=== PATIENT | female | born 1965 | race Caucasian/White ===

== ENCOUNTER 2018-10-08 18:27 | Emergency (ER) | payer MEDICARE, MEDICAID ==
[~2018-10-08] VITALS: Ht 157.5 cm; Wt 90.7 kg
[~2018-10-08 18:27] MED LIST: ACETAMIN-CODE12.5 ML PO; ACETAMINOPHEN-1 EAC1 PO; ALPRAZOLAM PO; ANTIVERT25 MG PO; ASPIR 8181 MG PO; ASPIR-TRIN325 MG PO; ASPIRIN EC325 M1 PO; ATORVASTATIN CA40 MG PO; BENADRYL25 MG PO; CELECOXIB100 MG PO; CIPROFLOXACIN500 M3; FLAGYL500 MG; FLEXERIL PO; GABAPENTIN 100100 MG PO; LAMICTAL XR200 MG PO; MELATONIN3 MG PO; NAPROSYN500 MG PO; NEURONTIN 300300 M1 PO; ONDANSETRON HCL4 M2 PO; PROZAC10 MG PO; PROZAC20 MG PO; PROZAC40 MG PO; ROBAXIN 750 MG750 M1 PO; TOPROL XL50 MG PO; XANAX XR2 MG PO; XANAX1 MG PO; XARELTO10 MG PO
[2018-10-08] MEDS ORDERED: OSTERA TABLET1 EAC1 PO (18:38)
[2018-10-08 19:30] LABS: ABSOLUTE BASOPHILS 0.1 thou/uL (0.0-0.2); ABSOLUTE EOSINOPHILS 0.1 thou/uL (0.0-0.7); ABSOLUTE LYMPHOCYTES 1.9 thou/uL (0.8-5.3); ABSOLUTE MONOCYTES 0.6 thou/uL (0.0-1.2); ABSOLUTE NEUTROPHILS 6.2 thou/uL (1.6-8.1); BASOPHILS 0.7 %; EOSINOPHILS 1.4 %; HEMATOCRIT 41.6 % (37.0-47.0); HEMOGLOBIN 14.3 gm/dL (12.0-15.0); MCH 33.7 pg (26.0-34.0); MCHC 34.5 g/dL (28.0-37.0); MCV 97.8 fL (80.0-100.0); MONOCYTES 7.1 %; MPV 6.6 fl. (7.2-11.1); NUCLEATED RBCS 0 /100WBC; PLATELET COUNT* 265 thou/uL (150-400); POLYS 69.8 %; RBC 4.26 mil/uL (4.20-5.00); RDW-CV 13.3 % (10.5-14.5); WBC 8.9 thou/uL (4.0-11.0)
[2018-10-08 19:39] LABS: ANION GAP 9 mmol/L (7-16); BUN 19 mg/dL (7-18); CALCIUM 10.2 mg/dL (8.5-10.1); CHLORIDE 100 mmol/L (98-107); CO2 29 mmol/L (21-32); CREATININE 0.8 mg/dL (0.6-1.3); GLUCOSE 116 mg/dL (70-99); SODIUM 138 mmol/L (136-145)
[2018-10-08 19:40] LABS: APTT 25.9 Seconds (25.0-31.3)
[2018-10-08 19:49] LABS: ALBUMIN 4.1 g/dL (3.4-5.0); ALKALINE PHOSPHATASE 106 U/L (46-116); NT-PRO BRAIN NAT PEPTIDE 26 pg/mL (<300); SGOT 13 U/L (15-37); SGPT 22 U/L (30-65); TOTAL BILIRUBIN 0.2 mg/dL (<0.1-1.0); TOTAL PROTEIN 7.9 g/dL (6.4-8.2); TROPONIN-I LEVEL <0.06 ng/mL (<0.06)
[2018-10-08 19:54] LABS: URINE BILIRUBIN NEGATIVE (Negative); URINE BLOOD 1+ (Negative); URINE CLARITY CLEAR; URINE COLOR YELLOW; URINE GLUCOSE-RANDOM NEGATIVE (Negative); URINE KETONES NEGATIVE (Negative); URINE LEUKOCYTES-REFLEX NEGATIVE (Negative); URINE NITRITE-REFLEX NEGATIVE (Negative); URINE PROTEIN NEGATIVE (Negative); URINE UROBILINOGEN 0.2 E.U./dl (0.2-1.0)
[2018-10-08 20:02] LABS: AMP/METHAMP Negative (Negative); BARBITURATES Negative (Negative); BENZODIAZEPINES POSITIVE (Negative); COCAINE Negative (Negative); METHADONE Negative (Negative); OPIATES Negative (Negative); PCP Negative (Negative); THC POSITIVE (Negative)
[2018-10-08 20:08] LABS: SQUAMOUS >10 Many /LPF (0-3); URINE WBC-REFLEX None Seen /HPF (0-5)
[2018-10-08 20:09] LABS: BACTERIA-REFLEX None Seen /HPF (None Seen); CASTS None Seen /LPF (None Seen); CRYSTALS None Seen /LPF (None Seen); URINE RBC 3-10 Few /HPF (0-2)
[2018-10-08 20:44] VITALS: BP 126/78
--- NOTE | 2018-10-09 12:16 | EKG ---
[place] [address] ELECTROCARDIOGRAM REPORT Name: BRIGETTE CUEVAS Room: [facility]#: [id number] Admission: 10/08/18 Attend Phys: Discharge: 10/08/18 Date of : 63 Report #: [id number] THIS REPORT FOR: //name// [facility] ED Test Date: 2018-10-08 Test Time: 18:49:46 Pat Name: BRIGETTE DRISCOLL Department: Room: Gender: F Pressure Controller: MS : 1965 Requested By: Angela Shepherd Order Number: [id number] MD: Rufus Oliver Measurements Intervals [place] Rate: 76 P: 11 GA: 156 QRS: 16 QRSD: 87 T: 39 QT: 379 QTc: 427 Interpretive Statements Sinus rhythm Abnormal R-wave progression, early transition Baseline wander in lead(s) V3,V4,V6 Compared to ECG 08/27/2016 09:44:04 No significant changes Electronically Signed On 10-09-2018 12:16:45 DIRECTOR GRAPHICS by Rufus Oliver [email or web address] <ELECTRONICALLY SIGNED> By: Rufus Oliver MD, FACC 10/09/18 1216 1849 Rufus Oliver MD, [facility] /EPI
== END 2018-10-08 20:44 | disposition home or self-care (01) ==
LOC: M.ERS 18:27
PROVIDERS: Nurse Practitioner Family
DX: R20.2 Paresthesia of skin (principal); R42 Dizziness and giddiness; I10 Essential (primary) hypertension; E78.5 Hyperlipidemia, unspecified; F17.210 Nicotine dependence, cigarettes, uncomplicated; Z88.6 Allergy status to analgesic agent; Z88.5 Allergy status to narcotic agent; Z88.8 Allergy status to other drugs, medicaments and biological substances; Z90.710 Acquired absence of both cervix and uterus; Z96.652 Presence of left artificial knee joint; Z79.899 Other long term (current) drug therapy

== ENCOUNTER → 2020-04-01 | Outpatient (CLI) | payer MEDICARE, MEDICAID ==
[~2020-04-01] MED LIST changes: +OSTERA TABLET1 EAC1 PO
== END ==
LOC: M.RAD 03-19 10:39 → M.ULTRA 09:04
DX: Z12.31 Encounter for screening mammogram for malignant neoplasm of breast (principal); R10.11 Right upper quadrant pain; R14.0 Abdominal distension (gaseous); N28.89 Other specified disorders of kidney and ureter

== ENCOUNTER → 2020-04-30 | Outpatient (CLI) | payer MEDICARE, MEDICAID ==
[~2020-04-30] MED LIST changes: +NEURONTIN 300M300 M2 PO
== END ==
LOC: M.ULTRA 04-24 15:00 → M.MRI 04-24 15:00 → M.ULTRA 13:00
PROVIDERS: ATTEND Family Medicine
DX: M47.816 Spondylosis without myelopathy or radiculopathy, lumbar region (principal); N26.1 Atrophy of kidney (terminal); M48.061 Spinal stenosis, lumbar region without neurogenic claudication

== ENCOUNTER → 2020-05-07 | Outpatient (CLI) | payer MEDICARE, MEDICAID ==
--- NOTE | 2020-05-23 15:59 | PAINCON ---
[facility] [address] [place] [address] PAIN MANAGEMENT CONSULTATION Name: BRIGETTE CUEVAS Room: [facility] Tali#: [id number] Admission: 05/07/20 Attend Phys: Ahmet Minor MD Discharge: Date of : 63 Report #: [id number] THIS REPORT FOR: //name// cc: Caterina Beckman Maggie M. DO ~ THIS REPORT FOR: //name// CC: Caterina Minor DATE OF SERVICE: 05/07/2020 CHIEF COMPLAINT: Low back pain. HISTORY: The patient is a 54-year-old female who has been referred to the pain clinic for evaluation of low back pain. She has a history of spinal stenosis. She has undergone epidural steroid injections in the past. She gleaned benefits from these. She returns today indicating that her pain has reoccurred. She has noticed tingling down into her legs. There is pain in the low back area. She rates it as a 3-4 today. It is exacerbated with standing, walking, climbing stairs, bending. She has been using muscle relaxants and nonsteroidal anti-inflammatory medications. These medications simply dull the pain. She has undergone physical therapy in the past with no long-term benefit. She has not been using chiropractic therapy. She denies any new bowel or bladder dysfunction. She feels that gabapentin helps down. ALLERGIES: CODEINE CAUSES NAUSEA AND VOMITING. HYDROCODONE, VICODIN, OXYCODONE, PERCOCET, DARVOCET-N 100, SOMA, TRAMADOL, WELLBUTRIN, EPINEPHRINE. CURRENT MEDICATIONS: Alprazolam 1 mg p.r.n., aspirin 81 or 325 mg, Lipitor 40 mg, Flexeril 10 mg t.i.d., gabapentin 300 mg t.i.d., Lamictal XR 200 mg, metoprolol XL 50 mg. PAST MEDICAL HISTORY: Hypertension, hyperlipidemia, bulging disks in the lumbar. Stomach problems and functional problems. PAST SURGICAL HISTORY: with hysterectomy in February 1998, left knee replacement on 09/11/2016. SOCIAL HISTORY: She is disabled. REVIEW OF SYSTEMS: Generally good health, wears glasses, nervousness, depression, back pain, joint stiffness, joint pain. LABORATORY DATA: 1. MRI of the lumbar spine dated 04/30/2020, L2-L3 [place] [address] PAIN MANAGEMENT CONSULTATION Name: BRIGETTE CUEVAS Room: [facility]#: [id number] Admission: 05/07/20 Attend Phys: Ahmet Minor MD Discharge: Date of : 63 Report #: [id number] bulge, bilateral facet hypertrophy and ligamentum flavum hypertrophy. This results in severe central canal stenosis and AP diameter of the central canal of 7.5 mm and mild bilateral neural foraminal narrowing. 2. L3-L4, broad-based posterior disk bulge, bilateral facet hypertrophy and ligamentum flavum hypertrophy results in mild central canal stenosis and bilateral neural foraminal narrowing at L4-L5. 3. L4-L5 broad-based posterior disk bulge and bilateral facet hypertrophy results in mild central canal stenosis and mild right and moderate left neural foraminal narrowing. 4. L5-S1 bilateral facet hypertrophy, no significant central canal stenosis or neural foraminal narrowing. PAIN CLINIC ASSESSMENT/PQRS: 1. The patient has osteoarthritic changes and has had a knee replacement. 2. Height 5 feet 2 inches, weight 220 pounds. 3. Vital signs: Blood pressure 130/56, heart rate 68, respiratory rate 16, room air saturation 98%, temperature 98.2. 4. Pain intensity 3-/10. 5. Fall history: The patient has not fallen in the last 3 months. 6. Blood thinner. The patient is not on a blood thinning medication. 7. Hypertension. The patient is treated for hypertension. 8. Opioids greater than 6 weeks. The patient receives medication from her primary. 9. Risk assessment tool, low for opioid use. 10. Functional assessment tool reviewed. 11. Recreational drug use. The patient denies use of recreational drugs. 12. Tobacco: The patient smokes 2 packs of cigarettes per week. 13. Alcohol. The patient uses alcoholic beverages. PHYSICAL EXAMINATION: GENERAL: The patient is a well-developed, somewhat obese white female, appears her stated age. She is alert and oriented x 3. Her affect is appropriate. NECK: Without adenopathy or JVD. EXTREMITIES: Upper extremity muscle strength judged to be 5-/5 for the major muscle groups in the upper extremity. ABDOMEN: Protuberant. LUNGS: Clear to auscultation. HEART: Regular rate. MUSCULOSKELETAL: The patient does have some pain and discomfort on the right side radiating down around the left flank. The patient without significant scoliosis, kyphosis or lordosis. Left lateral bending caused some worsening of pain and discomfort. Lumbar extension cause increased low back pain. The patient has a well-healed left knee scar. IMPRESSION: 1. Lumbar radiculopathy with severe central canal stenosis at L2-L3. [address] [address] PAIN MANAGEMENT CONSULTATION Name: BRIGETTE CUEVAS Room: [facility]#: [id number] Admission: 05/07/20 Attend Phys: Ahmet Minor MD Discharge: Date of : 63 Report #: [id number] 2. Hypertension. 3. Hyperlipidemia. 4. Bulging disks in the lumbar. 5. Stomach problems, functional problems. RECOMMENDATIONS: We discussed treatment options with the patient. A model was used to indicate the area of pathology. A model was used while reviewing the patient's MRI. She states that understands. She would like to consider an epidural steroid injection. Epidural steroid injections in the past have been quite beneficial. She will return to the Pain Clinic, at which time she will undergo an epidural steroid injection to help quell and decrease the pain and discomfort she is experiencing. She would be gleaned greater than 60% improvement after epidural steroid injections. We would like to thank you for letting us to participate in her care. We hope she continues to improve. <ELECTRONICALLY SIGNED> By: Ahmet Minor MD 05/23/20 1559 0938 1157N. Rusty Minor MD /[facility]
== END ==
LOC: M.PC 04:38
PROVIDERS: ATTEND Anesthesiology Pain Medicine
DX: M54.16 Radiculopathy, lumbar region (principal); M48.061 Spinal stenosis, lumbar region without neurogenic claudication; I10 Essential (primary) hypertension; E78.5 Hyperlipidemia, unspecified; Z88.6 Allergy status to analgesic agent

== ENCOUNTER → 2020-05-23 | Outpatient (CLI) | payer MEDICARE, MEDICAID ==
--- NOTE | 2020-06-05 08:36 | PAINCON ---
[facility] [address] [place] [address] PAIN MANAGEMENT CONSULTATION Name: BRIGETTE CUEVAS Room: [facility] Tali#: [id number] Admission: 05/23/20 Attend Phys: Ahmet Minor MD Discharge: Date of : 63 Report #: [id number] THIS REPORT FOR: //name// cc: Caterina Beckman Maggie M. DO ~ THIS REPORT FOR: //name// CC: Caterina Minor DATE OF SERVICE: 05/23/2020 CHIEF COMPLAINT: Chronic low back pain with history of spinal stenosis. HISTORY: The patient is a 54-year-old female who has been followed in the pain clinic; who has been seen in the pain clinic because of spinal stenosis. She returns today with a desire to undergo an epidural steroid injection. She rates her p`ain as 2/10. Pain is in her back. She describes it as sharp. She has had epidural steroid injections in the past and found them beneficial. She notes that her pain is worse when she is standing, walking, climbing stairs, bending and other activities of daily living. She has been using muscle relaxants and nonsteroidal anti-inflammatory medications. She describes her pain as dull. She is not being seen by a chiropractor. She has no new problems with bowel or bilateral function. She feels that gabapentin is helpful. ALLERGIES: CODEINE CAUSES NAUSEA AND VOMITING, HYDROCODONE, VICODIN, OXYCODONE, PERCOCET, DARVOCET-N 100, SOMA, TRAMADOL, WELLBUTRIN, EPINEPHRINE. CURRENT MEDICATIONS: Alprazolam 1 mg p.r.n., aspirin 325 mg, Lipitor 40 mg, Flexeril 10 mg t.i.d., gabapentin 300 mg t.i.d., Lamictal XR 200 mg, metoprolol XL 50 mg. PAIN CLINIC ASSESSMENT AND PQRS: 1. The patient has osteoarthritic changes and has not had knee replacement. 2. Height 5 feet 2 inches, weight 220 pounds, BMI is not listed. 3. Vital signs: Blood pressure 124/69, heart rate 80, respiratory rate 20, room air saturation is 98%. 4. Pain intensity 12/25. 5. Fall history: The patient has not fallen in the last 3 months. 6. Blood thinner. The patient is not on a blood thinning medication. 7. Hypertension. The patient is being treated for hypertension. 8. Opioids greater than 6 weeks. The patient received medication from her primary. 9. Risk assessment tool, low for opioid use. 10. Functional assessment tool reviewed. 11. Recreational drug [place] [address] PAIN MANAGEMENT CONSULTATION Name: BRIGETTE CUEVAS Room: [facility]#: [id number] Admission: 05/23/20 Attend Phys: Ahmet Minor MD Discharge: Date of : 63 Report #: [id number] 12. Tobacco: The patient smokes 2 packs of cigarettes per week. 13. Alcohol: The patient uses alcoholic beverages. PHYSICAL EXAMINATION: GENERAL: The patient is a well-developed, well-nourished, obese white female, appears her stated age. She is alert and oriented x 3. Her affect is appropriate. Speech is fluent. HEENT: Normocephalic, atraumatic. Extraocular eye muscles intact. The patient is wearing a mask. NECK: Without adenopathy or JVD. EXTREMITIES: Upper extremity muscle strength 5-/5 for the major muscle groups in the upper extremities. ABDOMEN: Protuberant, nontender. LUNGS: Clear. HEART: Regular rate. MUSCULOSKELETAL: The patient has some discomfort on the right side, which radiates down into the left flank. She is without significant scoliosis, kyphosis or lordosis. The patient's left lateral bending cause worsening of pain and discomfort. Lumbar extension cause increased low back pain. The patient has a well-healed scar in the left knee area. IMPRESSION: 1. Lumbar radiculopathy with central canal stenosis at L2-L3. 2. Hypertension. 3. Hyperlipidemia. 4. Bulging disks in the lumbar spine. 5. Stomach problems. 6. Functional problems. RECOMMENDATIONS: We discussed treatment options with the patient. At this juncture, we will proceed with an epidural steroid injection. The patient is having pain in the lateral portion in the L2-L3 dermatomal distribution. We will proceed with an injection in this area. Risks and benefits of the procedure were discussed. They include but are not limited to infection, worsening of pain, no improvement in pain, they include infection, worsening of pain, no improvement in pain, nerve damage and the patient elects to proceed. PROCEDURE NOTE: The patient was taken to the procedure area. She was then assisted in getting on the examination table. Her back was sterilely prepped with a Betadine solution. A 0.25% bupivacaine was infiltrated. A 17-gauge Tuohy at the L2-L3 area was tried. We were unsuccessful in getting that in this area, we then moved down to the L3-L4 area. A 17-gauge Tuohy was then placed in this area. There was no CSF, heme or paresthesia. A total of 16 seconds fluoroscopy time was used. The patient tolerated the procedure well. She will follow up in [place] [address] PAIN MANAGEMENT CONSULTATION Name: BRIGETTE CUEVAS Room: [facility]#: [id number] Admission: 05/23/20 Attend Phys: Ahmet Minor MD Discharge: Date of : 63 Report #: [id number] We would like to thank you for letting us participate in her care. We hope she continues to improve. <ELECTRONICALLY SIGNED> By: Ahmet Minor MD 06/05/20 0836 0913 1511N. Rusty Minor MD /nt
== END | disposition home or self-care (01) ==
LOC: M.PC 04:25
PROVIDERS: ATTEND Anesthesiology Pain Medicine
DX: M51.16 Intervertebral disc disorders with radiculopathy, lumbar region (principal); G89.29 Other chronic pain; I10 Essential (primary) hypertension; E78.5 Hyperlipidemia, unspecified; Z98.890 Other specified postprocedural states; Z79.899 Other long term (current) drug therapy; Z88.8 Allergy status to other drugs, medicaments and biological substances

== ENCOUNTER → 2020-06-13 | Outpatient (CLI) | payer MEDICARE, MEDICAID ==
--- NOTE | 2020-06-20 23:57 | PAINCON ---
[address] [address] PAIN MANAGEMENT CONSULTATION Name: BRIGETTE CUEVAS [id number] Admission: 06/13/20 Attend Phys: Ahmet Minor MD Discharge: Date of : 63 Report #: [id number] THIS REPORT FOR: //name// cc: Caterina Beckman Maggie M. DO ~ THIS REPORT FOR: //name// CC: Caterina Minor DATE OF SERVICE: 06/13/2020 CHIEF COMPLAINT: Return of low back pain. HISTORY: The patient is a 55-year-old female, who has been seen in the Pain Clinic because of pain and discomfort. She suffers from spinal stenosis. She has undergone epidural steroid injections in the past and found them beneficial. She returns today indicating that her pain has increased significantly. She is having in the low back that is radiating down into the anterior portion of her thigh. She has noticed a return of pain and discomfort in the low back and anterior thigh area. She would like to proceed with another epidural steroid injection. She rates her pain as a 6-7/10. ALLERGIES: CODEINE CAUSES NAUSEA AND VOMITING, HYDROCODONE, VICODIN, OXYCODONE, PERCOCET, DARVOCET-N 100, SOMA, TRAMADOL, WELLBUTRIN, EPINEPHRINE. CURRENT MEDICATIONS: Alprazolam 1 mg p.r.n., aspirin 325 mg, Lipitor 40 mg, Flexeril 10 mg t.i.d., gabapentin 300 mg t.i.d., Lamictal XR 200 mg, metoprolol XL 50 mg. PAIN CLINIC ASSESSMENT AND PQRS: 1. The patient has a history of osteoarthritic changes in her knee, but has not had a knee replacement. 2. Height 5 feet 2 inches, weight 234 pounds, BMI is 42. 3. Vital signs: Blood pressure 142/96, heart rate 75, respiratory rate 16, room air saturation 96%, temperature 98.1. 4. Pain intensity: 6-7/10. 5. Fall history: The patient has not fallen in the last 3 months. 6. Blood thinner: The patient is not on a blood thinning medication. 7. Hypertension: The patient is being treated for hypertension. 8. Opioids greater than 6 weeks: The patient receives medications from her primary. 9. Risk assessment tool: Low for opioid use. 10. Functional assessment tool: Reviewed. 11. Recreational drug use: The patient denies. 12. Tobacco: The patient smokes 2 packs of [place] [address] PAIN MANAGEMENT CONSULTATION Name: BRIGETTE CUEVAS Room: [facility]#: [id number] Admission: 06/13/20 Attend Phys: Ahmet Minor MD Discharge: Date of : 63 Report #: [id number] 13. Alcohol: The patient denies use of alcoholic beverages. PHYSICAL EXAMINATION: GENERAL: The patient is a well-developed, well-nourished, obese white female. She appears her stated age. She is alert and oriented x 3. Her affect is appropriate. Speech is fluent. HEENT: Normocephalic, atraumatic. Extraocular eye muscles intact. Sclerae nonicteric. The patient is wearing a mask. NECK: Without adenopathy or JVD. EXTREMITIES: Upper extremity muscle strength is judged to be 5-/5 for the major muscle groups in the upper extremity. ABDOMEN: Protuberant, nontender. LUNGS: Clear. HEART: Regular rate. MUSCULOSKELETAL: The patient with some discomfort on the right side with pain that is radiating down to her left flank. She is without significant scoliosis, kyphosis or lordosis. The patient has increased discomfort with left lateral bending, which exacerbates her discomfort. Lumbar extension causes some increased low back pain as well. The patient has a well-healed scar in the left knee area. IMPRESSION: 1. Lumbar radiculopathy with central canal stenosis at L2-L3. 2. Hypertension. 3. Hyperlipidemia. 4. Bulging disk in the lumbar spine. 5. Stomach problems. 6. Functional problems. RECOMMENDATIONS: We discussed treatment options with the patient. Risks and benefits of an epidural steroid injection were again discussed. They include but are not limited to infection, worsening of pain, no improvement in pain, nerve damage, bleeding, and the patient elects to proceed. PROCEDURE NOTE: The patient was taken to the procedure area. She was then assisted in getting on the examination table. A pillow was placed under the abdomen to bolster and improve positioning. Her back was sterilely prepped with betadine solution and allowed to dry. Fluoroscopy using anterior and posterior visualizations were undertaken. 0.25% bupivacaine was infiltrated at the L2-L3 area. After this area had been anesthetized, a 17-gauge Tuohy with loss of resistance technique was used to gain access to the epidural space. There was no CSF, heme or paresthesia. A total of 80 mg Depo-Medrol and 40 mg triamcinolone was injected. The patient remained in the Pain Clinic for an appropriate amount of time. Her pain score decreased to 3 at the time of discharge. She will follow up in the [address] [place] [address] PAIN MANAGEMENT CONSULTATION Name: BRIGETTE CUEVAS Room: [facility]#: [id number] Admission: 06/13/20 Attend Phys: Ahmet Minor MD Discharge: Date of : 63 Report #: [id number] future as needed. A renewal of her gabapentin was provided. The patient will take 2 tablets in the morning, 1 tablet midday, and 1 tablet in the evening. <ELECTRONICALLY SIGNED> By: Ahmet Minor MD 06/20/20 2357 1428 2155N. Rusty Minor MD /nt
== END | disposition home or self-care (01) ==
LOC: M.PC 03:56
PROVIDERS: ATTEND Anesthesiology Pain Medicine
DX: M54.16 Radiculopathy, lumbar region (principal); M48.061 Spinal stenosis, lumbar region without neurogenic claudication; M51.36 Other intervertebral disc degeneration, lumbar region; G89.29 Other chronic pain; I10 Essential (primary) hypertension; E78.5 Hyperlipidemia, unspecified; Z98.890 Other specified postprocedural states; Z79.899 Other long term (current) drug therapy; Z88.8 Allergy status to other drugs, medicaments and biological substances

== ENCOUNTER → 2021-09-18 | Outpatient (CLI) | payer MEDICARE, MEDICAID | LOC: M.RAD 10:57 | PROVIDERS: ATTEND Family Medicine | DX: Z12.31 Encounter for screening mammogram for malignant neoplasm of breast (principal) ==